=== PATIENT | male | born 1970 | race Caucasian/White ===

== ENCOUNTER 2019-10-23 00:22 | Emergency (ER) | payer MEDICAID ==
[~2019-10-23] VITALS: Ht 180.3 cm; Wt 83.9 kg
[2019-10-23] MEDS ORDERED: IBUP-1958 PO (00:30)
[2019-10-23] MEDS ORDERED: GABA300C PO (00:30)
--- NOTE | 2019-10-23 00:41 | NUR ---
Dr. Dai at bedside for MSE.
[2019-10-23 00:56] VITALS: BP 116/83
--- NOTE | 2019-10-23 00:56 | NUR ---
Patient discharged to home in stable condition. Written and verbal after care instructions given. Patient verbalizes understanding of instructions. Stressed follow up or return to ER for worsening s/s. Patient ambulated out of ER with steady gait, no acute signs of distress, VSS, all belongings taken.
== END 2019-10-23 00:57 | disposition home or self-care (01) ==
LOC: ER 00:27
DX: J30.9 Allergic rhinitis, unspecified (principal); J02.9 Acute pharyngitis, unspecified; E11.40 Type 2 diabetes mellitus with diabetic neuropathy, unspecified; J44.9 Chronic obstructive pulmonary disease, unspecified; Z96.641 Presence of right artificial hip joint; Z79.899 Other long term (current) drug therapy
CPT/HCPCS: A4663